=== PATIENT | female | born 1955 | race Caucasian/White ===

== ENCOUNTER 2017-10-31 08:56 | Outpatient (CLI) | payer BC | END 2017-10-31 21:22 | disposition home or self-care (01) | LOC: SMA 08:56 | PROVIDERS: ATTEND Family Medicine | DX: Z12.31 Encounter for screening mammogram for malignant neoplasm of breast (principal) | CPT/HCPCS: G0202 ==

== ENCOUNTER 2019-02-21 15:00 | Outpatient (CLI) | payer BC | END 2019-02-21 20:32 | disposition home or self-care (01) | LOC: SMA 15:00 | PROVIDERS: ATTEND Physician Assistant Medical | DX: Z12.31 Encounter for screening mammogram for malignant neoplasm of breast (principal) | CPT/HCPCS: 77067 ==